=== PATIENT | female | born 1995 | race Caucasian/White ===

== ENCOUNTER 2022-06-25 19:52 | Emergency (ER) | payer MEDICAID ==
[~2022-06-25] VITALS: Ht 180.3 cm; Wt 61.8 kg
[2022-06-25 20:19] VITALS: BP 105/53
== END 2022-06-25 22:25 | disposition left against medical advice (07) ==
LOC: ER 19:52
DX: T25.01 Burn of unspecified degree of ankle (principal); Z53.21 Procedure and treatment not carried out due to patient leaving prior to being seen by health care provider